=== PATIENT | female | born 1955 | race American Indian/Alaskan Native ===

== ENCOUNTER 2016-10-01 14:38 | Outpatient (CLI) | payer MEDICARE ==
--- NOTE | 2016-10-01 15:43 | Mammography Report ---
BILATERAL MAMMOGRAM: FINDINGS: The breast tissue is heterogeneously dense, which could obscure detection of small masses (approximately 50%-75% glandular). No mass, distortion, suspicious calcification, or skin change is seen. There are no significant changes when compared to her prior study in September 2014. CAD was utilized. IMPRESSION: Negative mammogram. There is no mammographic evidence of malignancy. RECOMMENDATION: Follow-up per ACS guidelines. BI-RADS CATEGORY: 1 = Negative ACR BI-RADS MAMMOGRAPHIC CODES: 0 = Needs additional imaging evaluation; 1 = Negative; 2 = Benign; 3 = Probably benign; 4 = Suspicious; 5 = Malignant; 6 = Known biopsy-proven malignancy COMMENT: 1. Dense breast tissue, i.e., adenosis, fibrocystic changes, etc., may obscure an underlying neoplasm. 2. Approximately 10% of cancers are not detected with mammography. 3. A negative mammography report should not delay biopsy if a clinically suspicious mass is present. COMMENT: Patient follow-up letters are generated in [employer].
== END 2016-10-01 14:39 | disposition home or self-care (01) ==
LOC: MAMMO 14:38
PROVIDERS: ATTEND Internal Medicine
DX: Z12.31 Encounter for screening mammogram for malignant neoplasm of breast (principal)
CPT/HCPCS: 77067; G0202

== ENCOUNTER 2017-10-06 13:35 | Outpatient (CLI) | payer MEDICARE ==
--- NOTE | 2017-10-07 12:55 | Mammography Report ---
BILATERAL DIGITAL SCREENING MAMMOGRAM with CAD: 10/06/17 13:35:00 CLINICAL: Routine screening. COMPARISON:10/01/16 FINDINGS: The breasts are heterogeneously dense, which may obscure small masses. No mass, architectural distortion or suspicious calcifications. IMPRESSION: No mammographic evidence of malignancy. BI-RADS CATEGORY: 1 - - Negative RECOMMENDATION: Routine mammographic screening in one year. COMMENT: Patient follow-up letters are generated by our [employer] application.
== END 2017-10-06 13:36 | disposition home or self-care (01) ==
LOC: MAMMO 13:35
PROVIDERS: ATTEND Internal Medicine
DX: Z12.31 Encounter for screening mammogram for malignant neoplasm of breast (principal); F17.200 Nicotine dependence, unspecified, uncomplicated
CPT/HCPCS: 77067

== ENCOUNTER 2018-10-14 13:10 | Outpatient (CLI) | payer MEDICARE ==
--- NOTE | 2018-10-15 09:38 | Mammography Report ---
BILATERAL DIGITAL SCREENING MAMMOGRAM : 10/14/18 13:10:00 CLINICAL: Routine screening. COMPARISON:10/06/17 FINDINGS: The breasts are heterogeneously dense, which may obscure small masses. A right asymmetry and left asymmetry with architectural distortion require additional imaging.No suspicious calcifications. IMPRESSION: Bilateral asymmetries requiring further workup. BI-RADS CATEGORY: 0 -- Additional Imaging Evaluation Required RECOMMENDATION: Recall for a right spot magnification view, left rolled CC and spot magnification CC views and bilateral breast ultrasound if needed. ACR BI-RADS MAMMOGRAPHIC CODES: 0 = Needs additional imaging evaluation; 1 = Negative; 2 = Benign; 3 = Probably benign; 4 = Suspicious; 5 = Malignant; 6 = Known biopsy-proven malignancy COMMENT: 1. Dense breast tissue, i.e., adenosis, fibrocystic changes, etc., may obscure an underlying neoplasm. 2. Approximately 10% of cancers are not detected with mammography. 3. A negative mammography report should not delay biopsy if a clinically suspicious mass is present. COMMENT: Patient follow-up letters are generated via our [employer] application.
== END 2018-10-14 13:11 | disposition home or self-care (01) ==
LOC: MAMMO 13:10
PROVIDERS: ATTEND Internal Medicine
DX: I10 Essential (primary) hypertension (principal); Z12.31 Encounter for screening mammogram for malignant neoplasm of breast; J44.9 Chronic obstructive pulmonary disease, unspecified; Z90.710 Acquired absence of both cervix and uterus; Z90.49 Acquired absence of other specified parts of digestive tract
CPT/HCPCS: 77067

== ENCOUNTER 2018-11-17 13:27 | Outpatient (CLI) | payer MEDICARE ==
--- NOTE | 2018-11-17 14:22 | Mammography Report ---
BILATERAL DIGITAL DIAGNOSTIC MAMMOGRAM : 11/17/18 13:27:00 CLINICAL: Recalled for bilateral asymmetries. COMPARISON:10/14/18 screening FINDINGS: Additional bilateral mammographic views were performed and are negative. IMPRESSION: No mammographic evidence of malignancy. BI-RADS CATEGORY: 1 -- Negative RECOMMENDATION: Routine mammographic screening in one year. COMMENT: 1. Dense breast tissue, i.e., adenosis, fibrocystic changes, etc., may obscure an underlying neoplasm. 2. Approximately 10% of cancers are not detected with mammography. 3. A negative mammography report should not delay biopsy if a clinically suspicious mass is present. COMMENT: Patient follow-up letters are generated via our [employer] application.
== END 2018-11-17 13:28 | disposition home or self-care (01) ==
LOC: MAMMO 13:27
PROVIDERS: ATTEND Internal Medicine
DX: R92.8 Other abnormal and inconclusive findings on diagnostic imaging of breast (principal); I10 Essential (primary) hypertension; J44.9 Chronic obstructive pulmonary disease, unspecified; Z90.710 Acquired absence of both cervix and uterus; Z90.49 Acquired absence of other specified parts of digestive tract
CPT/HCPCS: 77066

== ENCOUNTER 2019-10-06 03:11 | Observation (INO) | payer MEDICARE ==
[2019-10-06 03:38] LABS: Basophils # (Auto) 0.1 K/mm3 (0.0-0.1); Basophils % (Auto) 0.7 % (0.0-1.8); Eosinophils # (Auto) 0.1 K/mm3 (0.0-0.4); Eosinophils % (Auto) 1.8 % (0.0-4.3); Hematocrit 44.1 % (30.3-42.9); Hemoglobin 15.3 gm/dl (10.1-14.3); Lymphocytes # (Auto) 3.8 K/mm3 (1.2-5.4); Mean Corpuscular HGB Conc 35 % (30-34); Mean Corpuscular Volume 98 fl (79-97); Monocytes # (Auto) 0.5 K/mm3 (0.0-0.8); Monocytes % (Auto) 5.9 % (0.0-7.3); Platelet Count 162 K/mm3 (140-440); Red Blood Count 4.48 M/mm3 (3.65-5.03); Red Cell Distribution Width 14.4 % (13.2-15.2)
--- NOTE | 2019-10-06 03:49 | Cat Scan Report ---
CT HEAD/BRAIN WO CON INDICATION / CLINICAL INFORMATION: Right sided arm weakness. No previous stroke(s). TECHNIQUE: All CT scans at this location are performed using CT dose reduction for ALARA by means of automated e xposure control. COMPARISON: None available. FINDINGS: There is a possible tiny lacunar infarct in the anterior limb of the internal capsule on the right. A small low density area in the inferior right basal ganglia region probably represents a prominent pe rivascular space. No other focal lesion is seen. There is no evidence of mass effect or intracranial hemorrhage. I see no evidence of acute major vessel occlusion. The calvarium is intact and the visualized paranasal sinuses are clear. IMPRESSION: 1. Possible tiny lacunar infarct in the anterior limb of the internal capsule on the right is of unce rtain age. 2. No evidence of acute major vessel occlusion or intracranial hemorrhage. This code stroke report was communicated to Dr. Koo in the emergency room at 2:43 AM. Signer Name: Donald Gómez MD Signed: 10/06/2019 3:45 AM Workstation Name: [id number]
[2019-10-06 03:51] LABS: BUN/Creatinine Ratio 16; Blood Urea Nitrogen 14 mg/dL (7-17); Calcium 9.4 mg/dL (8.4-10.2); Hemolysis Index 53
[2019-10-06] MEDS ORDERED: CLOPIDOGREL 300 MG TAB PO ONE (03:57)
--- NOTE | 2019-10-06 03:58 | Emergency Department Report ---
HPI - General Chief Complaint: Neuro Symptoms/Deficit Time Seen by Provider: 10/06/19 03:55 - HPI HPI: Room 2 The patient is a 64-year-old female present with a chief complaint of right- sided weakness. The patient states she cooked dinner this evening at 19: 00 and then fell asleep while watching television at approximately 20: 00. The patient states she awakened when the phone rang but noted she had difficulty reaching for the phone with her right arm. The patient states the right arm was weak and numb and she figured it just "fell asleep." Patient answered the phone with her left hand and had a conversation with her mother. She states after the conversation she noticed her right upper extremity was still weak and numb prompting her to call EMS. EMS arrived and advised the patient to come to the hospital but the patient states she was concerned that the hospital was too busy secondary to the coronavirus outbreak so she decided to stay home. The patient eventually called her primary physician who international recruiter instructed her to come to the ED. ED Past Medical Hx - Past Medical History Previous Medical History?: Yes Hx Hypertension: Yes Hx COPD: Yes (and chronic bronchitis) Additional medical history: fibromyalgia, back issues, borderline diabetic,Emphysema - Surgical History Past Surgical History?: Yes Hx Coronary Stent: Yes (8 years ago) Hx Cholecystectomy: Yes Additional Surgical History: hysterectomy - Social History Smoking Status: Current Every Day Smoker (1 pack/day) Substance Use Type: None (Denies illicit drug use) - Medications Home Medications: Home Medications Medication Instructions Recorded Confirmed Last Taken Type ALPRAZolam [Xanax] 1 mg PO DAILY PRN 03/18/13 03/18/13 03/17/13 History Gabapentin [Gralise] 600 mg PO TID 03/18/13 03/18/13 03/17/13 History Morphine ER [Ms Contin ER] 30 mg PO BID PRN 03/18/13 03/18/13 03/17/13 History Morphine [Morphine TAB] 30 mg PO BID 03/18/13 03/18/13 03/17/13 History Valsartan [Diovan] DAILY 03/18/13 03/18/13 03/17/13 History Verapamil HCl [Verapamil] 240 mg PO DAILY 03/18/13 03/18/13 Unknown History cloZAPine [Clozapine Odt] 5 mg PO DAILY 09/03/18/13 03/17/13 History fentaNYL [Duragesic] 75 mcg TD Q3D 03/18/13 03/18/13 03/17/13 History ED Review of Systems ROS: Stated complaint: RT SIDE NUMBNESS Other details as noted in HPI Constitutional: no symptoms reported Eyes: denies: eye pain ENT: denies: throat pain Respiratory: no symptoms reported Cardiovascular: denies: chest pain Endocrine: no symptoms reported Gastrointestinal: denies: abdominal pain Neurological: weakness, paresthesias Physical Exam - Physical Exam Vital Signs: Vital Signs 10/06/19 03:22 Temperature 98.1 F Pulse Rate 67 Respiratory 20 Rate Blood Pressure 140/73 O2 Sat by Pulse 97 Oximetry Physical Exam: GENERAL: The patient is well-developed well-nourished female sitting on stretcher not appearing to be in acute distress. [] HEENT: Normocephalic. Atraumatic. Extraocular motions are intact. Patient has moist mucous membranes. NECK: Supple. Trachea midline CHEST/LUNGS: Clear to auscultation. There is no respiratory distress noted. HEART/CARDIOVASCULAR: Regular. There is no tachycardia. There is no gallop rub or murmur. ABDOMEN: Abdomen is soft, nontender. Patient has normal bowel sounds. There is no abdominal distention. SKIN: There is no rash. There is no edema. There is no diaphoresis. NEURO: The patient is awake, alert, and oriented. The patient is cooperative. Cranial nerves II through XII grossly intact. Patient is unable to fully raise right upper extremity above her head secondary to weakness. The patient has normal speech MUSCULOSKELETAL: There is no evidence of acute injury. ED Course Vital Signs 10/06/19 03:22 Temperature 98.1 F Pulse Rate 67 Respiratory 20 Rate Blood Pressure 140/73 O2 Sat by Pulse 97 Oximetry - Consultations Consultation #1: 10/06/19 03:57 Case discussed with tele-neurologist- no TPA at this time. Recommends CTA neck and brain ED Medical Decision Making - Lab Data Result diagrams: 10/06/19 03:25 10/06/19 03:25 Laboratory Tests 10/06/19 10/06/19 10/06/19 03:25 03:25 03:25 WBC 7.8 RBC 4.48 Hgb 15.3 H Hct 44.1 H MCV 98 H MCH 34 H MCHC 35 H RDW 14.4 Plt Count 162 Lymph % (Auto) 49.0 H [place] % (Auto) 5.9 Eos % (Auto) 1.8 Baso % (Auto) 0.7 Lymph # 3.8 [place] # 0.5 Eos # 0.1 Baso # 0.1 Seg Neutrophils % 42.6 Seg Neutrophils # 3.3 PT 14.2 INR 1.09 APTT 33.5 Sodium 138 Potassium 4.3 Chloride 105.1 Carbon Dioxide 24 Anion Gap 13 BUN 14 Creatinine 0.9 Estimated GFR > 60 BUN/Creatinine Ratio 16 Glucose 97 Calcium 9.4 Troponin T < 0.010 - EKG Data -: EKG Interpreted by Me EKG shows normal: sinus rhythm Rate: normal - EKG Data When compared to previous EKG there are: previous EKG unavailable Interpretation: other (PVC) - Differential Diagnosis CVA, TIA Critical care attestation.: If time is entered above; I have spent that time in minutes in the direct care of this critically ill patient, excluding procedure time. ED Disposition Clinical Impression: CVA (cerebral vascular accident) Disposition: DC-09 OP ADMIT IP TO THIS HOSP Is pt being admited?: Yes Does the pt Need Aspirin: No Condition: Fair Referrals: PRIMARY CARE, [Referring] - 3-5 Days
[2019-10-06 04:25] LABS: INR 1.09 (0.87-1.13); Partial Thromboplastin Time 33.5 Sec. (24.2-36.6)
--- NOTE | 2019-10-06 06:18 | Emergency Department Report ---
HPI - General Chief Complaint: Neuro Symptoms/Deficit Time Seen by Provider: 10/06/19 03:55 - HPI HPI: [facility] Date of Service: 10/06/2019 03:17:07 Impression: Rule Out Acute Ischemic Stroke Comments/Sign-Out: The patient has right sided weaekness,most likely a left basal ganglia stroke. CTA head/neck is negative. No CTA head/neck and perfusion evidence of lvo. Metrics: Last Known Well: 10/06/2019 22:00:00 [facility] Notification Time: 10/06/2019 03:16:31 Arrival Time: 10/06/2019 03:17:07 Stamp Time: 10/06/2019 03:17:07 Time First Login Attempt: 10/06/2019 03:17:07 Video Start Time: 10/06/2019 03:17:07 Symptoms: right arm weakness NIHSS Start Assessment Time: 10/06/2019 03:38:21 Patient is not a candidate for tPA. Patient was not deemed candidate for tPA thrombolytics because of Last Well Known Above 4.5 Hours. Video End Time: 10/06/2019 03:38:24 CT head showed no acute hemorrhage or acute core infarct. Clinical Presentation is Suggestive of Large Vessel Occlusive Disease, Recommendations are as Follows Reviewed, No Indication of Large Vessel Occlusive Thrombus, Patient is not an BONNIE Candidate. ED Physician notified of diagnostic impression and management plan on 10/06/2019 03:38:24 Our recommendations are outlined below. Recommendations: Activate Stroke Protocol Admission/Order Set Stroke/Telemetry Floor Neuro Checks Bedside Swallow Eval DVT Prophylaxis IV Fluids, Normal Saline Head of Bed Below 30 Degrees Euglycemia and Avoid Hyperthermia (PRN Acetaminophen) Lipid Panel to Be Obtained, if Not Done in the Last 30 Days Therapies: Physical Therapy, Occupational Therapy, Speech Therapy Assessment When Applicable Dysphaghia Screen: Swallow Evaluation, Bedside NPO Until Swallow Evaluation History of Present Illness: Patient is a 64 year old Male. Patient was brought by EMS for symptoms of right arm weakness The patient has right arm weakeness that started close to [address] head showed no acute hemorrhage or acute core infarct. Last seen normal was beyond 4.5 hours of presentation. There is no history of hemorrhagic complications or intracranial hemorrhage. There is no history of Recent Anticoagulants. There is no history of recent major surgery. There is no history of recent stroke. Examination: Blood Glucose(88) 1A: Level of Consciousness - Alert; keenly responsive + 0 1B: Ask Month and Age - Both Questions Right + 0 1C: Blink Eyes & Squeeze Hands - Performs Both Tasks + 0 2: Test Horizontal Extraocular Movements - Normal + 0 3: Test Visual Hansen - No Visual Loss + 0 4: Test Facial Palsy (Use Grimace if Obtunded) - Normal symmetry + 0 5A: Test Left Arm Motor Drift - No Drift for 10 Seconds + 0 5B: Test Right Arm Motor Drift - Drift, but doesn't hit bed + 1 6A: Test Left Leg Motor Drift - No Drift for 5 Seconds + 0 6B: Test Right Leg Motor Drift - Drift, but doesn't hit bed + 1 7: Test Limb Ataxia (FNF/Heel-Braun) - No Ataxia + 0 8: Test Sensation - Mild-Moderate Loss: Less Sharp/More Dull + 1 9: Test Language/Aphasia - Normal; No aphasia + 0 10: Test Dysarthria - Normal + 0 11: Test Extinction/Inattention - No abnormality + 0 NIHSS Score: 3 Patient was informed the Neurology Consult would happen via TeleHealth consult by way of interactive audio and video telecommunications and consented to receiving care in this manner. Due to the immediate potential for life-threatening deterioration due to underlying acute neurologic illness, I spent 35 minutes providing critical care. This time includes time for face to face visit via telemedicine, review of medical records, imaging studies and discussion of findings with providers, the patient and/or family. Dr Rodo [facility] Case [id number] ED Past Medical Hx - Past Medical History Previous Medical History?: Yes Hx Hypertension: Yes Hx COPD: Yes (and chronic bronchitis) Additional medical history: fibromyalgia, back issues, borderline diabetic,Emphysema - Surgical History Past Surgical History?: Yes Hx Coronary Stent: Yes (8 years ago) Hx Cholecystectomy: Yes Additional Surgical History: hysterectomy - Social History Smoking Status: Current Every Day Smoker (1 pack/day) Substance Use Type: None (Denies illicit drug use) - Medications Home Medications: Home Medications Medication Instructions Recorded Confirmed Last Taken Type ALPRAZolam [Xanax] 1 mg PO DAILY PRN 03/18/13 03/18/13 03/17/13 History Gabapentin [Gralise] 600 mg PO TID 03/18/13 03/18/13 03/17/13 History Morphine ER [Ms Contin ER] 30 mg PO BID PRN 03/18/13 03/18/13 03/17/13 History Morphine [Morphine TAB] 30 mg PO BID 03/18/13 03/18/13 03/17/13 History Valsartan [Diovan] DAILY 03/18/13 03/18/13 03/17/13 History Verapamil HCl [Verapamil] 240 mg PO DAILY 03/18/13 03/18/13 Unknown History cloZAPine [Clozapine Odt] 5 mg PO DAILY 03/18/13 03/18/13 03/17/13 History fentaNYL [Duragesic] 75 mcg TD Q3D 03/18/13 03/18/13 03/17/13 History ED Review of Systems ROS: Stated complaint: RT SIDE NUMBNESS Other details as noted in HPI Constitutional: no symptoms reported Eyes: denies: eye pain ENT: denies: throat pain Respiratory: no symptoms reported Cardiovascular: denies: chest pain Endocrine: no symptoms reported Gastrointestinal: denies: abdominal pain Neurological: weakness, paresthesias Physical Exam - Physical Exam Vital Signs: Vital Signs 10/06/19 10/06/19 03:22 04:00 Temperature 98.1 F Pulse Rate 67 Respiratory 20 18 Rate Blood Pressure 140/73 O2 Sat by Pulse 97 98 Oximetry ED Course Vital Signs 10/06/19 10/06/19 03:22 04:00 Temperature 98.1 F Pulse Rate 67 Respiratory 20 18 Rate Blood Pressure 140/73 O2 Sat by Pulse 97 98 Oximetry ED Medical Decision Making - Lab Data Result diagrams: 10/06/19 03:25 10/06/19 03:25 Critical care attestation.: If time is entered above; I have spent that time in minutes in the direct care of this critically ill patient, excluding procedure time. ED Disposition Clinical Impression: CVA (cerebral vascular accident) Disposition: OP ADMIT IP TO THIS HOSP Condition: Fair Referrals: PRIMARY CARE, [Referring] - 3-5 Days
--- NOTE | 2019-10-06 06:47 | Cat Scan Report ---
CTA neck with and without contrast CLINICAL HISTORY: Cerebrovascular accident, right arm weakness. Technique: Multiple contiguous postcontrast axial CT images of the neck were obtained at 0.63 mm inte rvals. 3 plane MIP reconstructions were produced. Precontrast localizing images were also performed. All CT scans at this location are performed using the CT dose reduction for ALARA by means of automat ed exposure control. FINDINGS: No previous exams available for comparison. There is minimal atherosclerotic plaque with ti ny foci of calcification involving proximal internal carotid arteries bilaterally. However, there is no significant stenosis by NASCET criteria. The carotid arteries otherwise appear unremarkable. There is no significant focal narrowing involving the vertebral arteries. There is developmental aber rant subclavian artery IMPRESSION: There is minimal atherosclerotic plaque involving proximal internal carotid arteries bilaterally with out significant stenosis by NASCET criteria. There is developmental aberrant right subclavian artery. Signer Name: Ayaan Donaldson MD Signed: 10/06/2019 6:43 AM Workstation Name: [id number]
--- NOTE | 2019-10-06 06:54 | Cat Scan Report ---
CTA head with and without IV contrast. CLINICAL HISTORY: Cerebrovascular accident. Technique: Multiple contiguous postcontrast CT images of the head were obtained at 0.63 mm intervals. 3 plane MIP reconstructions were obtained. Precontrast localizing images were also performed. CT scan s at this location are performed using the CT dose reduction for [employer] by means of automated exposure control. 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 There are small foci of calcification involving di stal ICAs bilaterally without significant focal stenosis by NASCET criteria. There is also mild developmental hypoplasia of the distal left vertebral artery. There is no signific ant narrowing involving the basilar artery. The proximal cerebral arteries otherwise demonstrate appr opriate caliber without CT evidence of large vessel occlusion. The dural venous sinuses opacify with contrast. There is no definitive CTA evidence of intracranial aneurysm. IMPRESSION: There are small foci of calcification involving distal internal carotid arteries without significant focal stenosis by NASCET criteria. 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 Signer Name: Ayaan Donaldson MD Signed: 10/06/2019 6:50 AM Workstation Name: [id number]
--- NOTE | 2019-10-06 13:27 | History and Physical Report ---
History of Present Illness Date of examination: 10/06/19 Date of admission: 10/06/19 09:13 Chief complaint: RUE weakness History of present illness: The patient is a 64-year-old female present with a chief complaint of right UE weakness. The patient states she cooked dinner last evening at 7p and then fell asleep while watching television at approximately 8p. The patient states she awakened when the phone rang but noted she had difficulty reaching for the phone with her right arm. The patient states the right arm was weak and numb and she figured it just "fell asleep." Patient answered the phone with her left hand and had a conversation with her mother. She states after the conversation she noticed her right upper extremity was still weak and numb prompting her to call EMS. EMS arrived and advised the patient to come to the hospital but the patient states she was concerned that the hospital was too busy secondary to the coronavirus outbreak so she decided to stay home. The patient eventually called her primary physician who internet network specialist instructed her to come to the ED. the patient is currently able to bruised her right upper extremity at present. However, patient states that it is weaker than usual. Patient denies any headache or visual disturbances. No other weakness. No other paresthesias. Past History Past Medical History: COPD, hypertension, other (fibromyalgia, back issues, borderline diabetic,Emphysema) Past Surgical History: No surgical history Social history: no significant social history Family history: no significant family history Medications and Allergies Allergies Allergy/AdvReac Type Severity Reaction Status Date / Time aspirin Allergy Rash Verified 03/18/13 12:09 tomato [Tomato] Allergy Rash Verified 03/18/13 12:09 Home Medications Medication Instructions Recorded Confirmed Last Taken Type ALPRAZolam [Xanax] 1 mg PO DAILY PRN 03/18/13 10/06/19 03/17/13 History Gabapentin [Gralise] 600 mg PO TID 03/18/13 10/06/19 03/17/13 History Morphine ER [Ms Contin ER] 30 mg PO BID PRN 03/18/13 10/06/19 03/17/13 History Morphine [Morphine TAB] 30 mg PO BID 03/18/13 10/06/19 03/17/13 History Valsartan [Diovan] 1 mg DAILY 03/18/13 10/06/19 03/17/13 History Verapamil HCl [Verapamil] 240 mg PO DAILY 03/18/13 10/06/19 Unknown History cloZAPine [Clozapine Odt] 5 mg PO DAILY 03/18/13 10/06/19 03/17/13 History fentaNYL [Duragesic] 75 mcg TD Q3D 03/18/13 10/06/19 03/17/13 History Review of Systems All systems: negative Exam - Constitutional Vitals: Temp Pulse Resp BP Pulse Ox 98.0 F 67 20 147/77 97 10/06/19 11:56 10/06/19 11:56 10/06/19 11:56 10/06/19 11:56 10/06/19 11:56 General appearance: Present: no acute distress, well-nourished - EENT Eyes: Present: PERRL ENT: hearing intact, clear oral mucosa - Neck Neck: Present: supple, normal ROM - Respiratory Respiratory effort: normal Respiratory: bilateral: CTA - Cardiovascular Heart Sounds: Present: S1 & S2. Absent: rub, click - Extremities Extremities: pulses symmetrical, No edema Peripheral Pulses: within normal limits - Abdominal General gastrointestinal: Present: soft, non-tender, non-distended, normal bowel sounds Female genitourinary: Present: normal - Integumentary Integumentary: Present: clear, warm, dry - Musculoskeletal Musculoskeletal: gait normal, strength equal bilaterally - Psychiatric Psychiatric: appropriate mood/affect, intact judgment & insight - Neurologic Neurologic: CNII-XII intact, moves all extremities VICTOR HUGO score - Victor Hugo Score Age > 65: (0) No Aspirin use within the Past 7 Days: (0) No 3 or more CAD Risk Factors: (0) No 2 or more Angina events in past 24 hrs: (0) No Known CAD with more than 50% Stenosis: (0) No Elevated Cardiac Markers: (0) No ST Deviation Greater than 0.5mm: (0) No VICTOR HUGO Score: 0 Results - Labs CBC & Chem 7: 10/06/19 03:25 10/06/19 03:25 Labs: Laboratory Last Values WBC 7.8 K/mm3 (4.5-11.0) 10/06/19 03:25 RBC 4.48 M/mm3 (3.65-5.03) 10/06/19 03:25 Hgb 15.3 gm/dl (10.1-14.3) H 10/06/19 03:25 Hct 44.1 % (30.3-42.9) H 10/06/19 03:25 MCV 98 fl (79-97) H 10/06/19 03:25 MCH 34 pg (28-32) H 10/06/19 03:25 MCHC 35 % (30-34) H 10/06/19 03:25 RDW 14.4 % (13.2-15.2) 10/06/19 03:25 Plt Count 162 K/mm3 (140-440) 10/06/19 03:25 Lymph % (Auto) 49.0 % (13.4-35.0) H 10/06/19 03:25 [place] % (Auto) 5.9 % (0.0-7.3) 10/06/19 03:25 Eos % (Auto) 1.8 % (0.0-4.3) 10/06/19 03:25 Baso % (Auto) 0.7 % (0.0-1.8) 10/06/19 03:25 Lymph # 3.8 K/mm3 (1.2-5.4) 10/06/19 03:25 [place] # 0.5 K/mm3 (0.0-0.8) 10/06/19 03:25 Eos # 0.1 K/mm3 (0.0-0.4) 10/06/19 03:25 Baso # 0.1 K/mm3 (0.0-0.1) 10/06/19 03:25 Seg Neutrophils % 42.6 % (40.0-70.0) 10/06/19 03:25 Seg Neutrophils # 3.3 K/mm3 (1.8-7.7) 10/06/19 03:25 PT 14.2 Sec. (12.2-14.9) 10/06/19 03:25 INR 1.09 (0.87-1.13) 10/06/19 03:25 APTT 33.5 Sec. (24.2-36.6) 10/06/19 03:25 Sodium 138 mmol/L (137-145) 10/06/19 03:25 Potassium 4.3 mmol/L (3.6-5.0) 10/06/19 03:25 Chloride 105.1 mmol/L (98-107) 10/06/19 03:25 Carbon Dioxide 24 mmol/L (22-30) 10/06/19 03:25 Anion Gap 13 mmol/L 10/06/19 03:25 BUN 14 mg/dL (7-17) 10/06/19 03:25 Creatinine 0.9 mg/dL (0.7-1.2) 10/06/19 03:25 Estimated GFR > 60 ml/min 10/06/19 03:25 BUN/Creatinine Ratio 16 % 10/06/19 03:25 Glucose 97 mg/dL (65-100) 10/06/19 03:25 POC Glucose 88 (70-105) 10/06/19 03:54 Calcium 9.4 mg/dL (8.4-10.2) 10/06/19 03:25 Troponin T < 0.010 ng/mL (0.00-0.029) 10/06/19 03:25 Assessment and Plan Assessment and plan: Right upper extremity weakness. Etiology may be secondary to CVA/TIA. However, CTA of the head and neck are negative. Await neurology recommendations. Continue aspirin. PT/OT. Hypertension. Continue antihypertensive medications. COPD. Compensated. Fibromyalgia. Type 2 diabetes mellitus. Continue diet.
[2019-10-06] MEDS ORDERED: ACETAMINOPHEN 325 MG TAB PO PRN ×2 (17:54→18:19)
[2019-10-06] MEDS ORDERED: ONDANSETRON 4 MG/2 ML INJ IV PRN (18:19)
[2019-10-06] MEDS ORDERED: PROMETHAZINE 25 MG RECT SUPP PR PRN (18:19)
[2019-10-06] MEDS ORDERED: METOCLOPRAMIDE 10 MG TAB PO PRN (18:19)
[2019-10-06] MEDS ORDERED: MAGNESIUM HYDROXIDE (MOM) ORAL LIQD UDC PO PRN (18:19)
[2019-10-06] MEDS ORDERED: ALPRAZolam 1 MG TAB PO PRN (21:42)
[2019-10-06] MEDS ORDERED: MORPHINE 30 MG PO SCH (22:00)
[2019-10-06] MEDS: MORPHINE 30 MG ER TAB PO PRN (22:53)
[2019-10-06] MEDS ORDERED: fentaNYL 75 MCG/HR PATCH 72HR TD SCH (23:30)
[2019-10-07 05:44] LABS: Chol/HDL Ratio 5.28 %
[2019-10-07] MEDS ORDERED: GABAPENTIN 300 MG CAP PO SCH (08:00)
[2019-10-07] MEDS ORDERED: GABAPENTIN 600 MG PO SCH (08:00)
--- NOTE | 2019-10-07 08:45 | Progress Note ---
Hospitalist Physical - Constitutional Vitals: Temp Pulse Resp BP Pulse Ox 98.3 F 58 L 20 138/62 91 10/07/19 07:40 10/07/19 07:40 10/07/19 07:40 10/07/19 07:40 10/07/19 07:40 General appearance: Present: no acute distress, well-nourished VICTOR HUGO score - Victor Hugo Score Age > 65: (0) No Aspirin use within the Past 7 Days: (0) No 3 or more CAD Risk Factors: (0) No 2 or more Angina events in past 24 hrs: (0) No Known CAD with more than 50% Stenosis: (0) No Elevated Cardiac Markers: (0) No ST Deviation Greater than 0.5mm: (0) No VICTOR HUGO Score: 0 Results - Labs CBC & Chem 7: 10/06/19 03:25 10/06/19 03:25 Labs: Laboratory Last Values WBC 7.8 K/mm3 (4.5-11.0) 10/06/19 03:25 RBC 4.48 M/mm3 (3.65-5.03) 10/06/19 03:25 Hgb 15.3 gm/dl (10.1-14.3) H 10/06/19 03:25 Hct 44.1 % (30.3-42.9) H 10/06/19 03:25 MCV 98 fl (79-97) H 10/06/19 03:25 MCH 34 pg (28-32) H 10/06/19 03:25 MCHC 35 % (30-34) H 10/06/19 03:25 RDW 14.4 % (13.2-15.2) 10/06/19 03:25 Plt Count 162 K/mm3 (140-440) 10/06/19 03:25 Lymph % (Auto) 49.0 % (13.4-35.0) H 10/06/19 03:25 [place] % (Auto) 5.9 % (0.0-7.3) 10/06/19 03:25 Eos % (Auto) 1.8 % (0.0-4.3) 10/06/19 03:25 Baso % (Auto) 0.7 % (0.0-1.8) 10/06/19 03:25 Lymph # 3.8 K/mm3 (1.2-5.4) 10/06/19 03:25 [place] # 0.5 K/mm3 (0.0-0.8) 10/06/19 03:25 Eos # 0.1 K/mm3 (0.0-0.4) 10/06/19 03:25 Baso # 0.1 K/mm3 (0.0-0.1) 10/06/19 03:25 Seg Neutrophils % 42.6 % (40.0-70.0) 10/06/19 03:25 Seg Neutrophils # 3.3 K/mm3 (1.8-7.7) 10/06/19 03:25 PT 14.2 Sec. (12.2-14.9) 10/06/19 03:25 INR 1.09 (0.87-1.13) 10/06/19 03:25 APTT 33.5 Sec. (24.2-36.6) 10/06/19 03:25 Sodium 138 mmol/L (137-145) 10/06/19 03:25 Potassium 4.3 mmol/L (3.6-5.0) 10/06/19 03:25 Chloride 105.1 mmol/L (98-107) 10/06/19 03:25 Carbon Dioxide 24 mmol/L (22-30) 10/06/19 03:25 Anion Gap 13 mmol/L 10/06/19 03:25 BUN 14 mg/dL (7-17) 10/06/19 03:25 Creatinine 0.9 mg/dL (0.7-1.2) 10/06/19 03:25 Estimated GFR > 60 ml/min 10/06/19 03:25 BUN/Creatinine Ratio 16 % 10/06/19 03:25 Glucose 97 mg/dL (65-100) 10/06/19 03:25 POC Glucose 88 (70-105) 10/06/19 03:54 Calcium 9.4 mg/dL (8.4-10.2) 10/06/19 03:25 Troponin T < 0.010 ng/mL (0.00-0.029) 10/06/19 03:25 Triglycerides 153 mg/dL (2-149) H 10/07/19 04:52 Cholesterol 185 mg/dL (50-199) 10/07/19 04:52 LDL Cholesterol Direct 135 mg/dL (50-130) H 10/07/19 04:52 HDL Cholesterol 35 mg/dL (40-59) L 10/07/19 04:52 Cholesterol/HDL Ratio 5.28 % 10/07/19 04:52 [place]/IV: Voiding Method Toilet IV Catheter Type [Left INT / Saline Lock Antecubital] Active Medications - Current Medications Current Medications: Generic Name Dose Route Start Last Admin Trade Name Freq PRN Reason Stop Dose Admin Acetaminophen 650 mg 10/06/19 18:19 Tylenol PO Q4H PRN Pain, Mild (1-3) Alprazolam 1 mg 10/06/19 21:42 Xanax PO DAILY PRN Anxiety Bisacodyl 10 mg 10/06/19 18:19 Dulcolax NH QDAY PRN Constipation Clopidogrel Bisulfate 75 mg 10/07/19 10:00 Plavix PO QDAY [facility] Fentanyl 75 mcg 10/06/19 23:30 10/06/19 22:53 Duragesic TD 75 mcg Q3D JACQUELYN Administration Gabapentin 600 mg 10/07/19 08:00 Gabapentin PO TID [facility] Magnesium Hydroxide 30 ml 10/06/19 18:19 Milk Of Magnesia PO Q4H PRN Constipation Metoclopramide HCl 10 mg 10/06/19 18:19 10/06/19 22:53 Reglan PO 10 mg Q6H PRN Administration Nausea And Vomiting Miscellaneous Medication 5 mg 10/07/19 10:00 Clozapine [Clozapine Odt] PO DAILY [facility] Morphine Sulfate 30 mg 10/06/19 21:42 10/06/19 22:53 Ms Contin Er PO 30 mg BID PRN Administration PAIN (7-10) Ondansetron HCl 4 mg 10/06/19 18:19 10/06/19 19:01 Zofran IV 4 mg Q8H PRN Administration Nausea And Vomiting Promethazine HCl 25 mg 10/06/19 18:19 Phenergan NH Q6H PRN Nausea And Vomiting Sodium Chloride 10 ml 10/06/19 18:19 Sodium Chloride Flush Syringe 10 Ml IV PRN PRN LINE FLUSH Verapamil HCl 240 mg 10/07/19 10:00 Calan Sr PO QDAY [facility]
[2019-10-07] MEDS ORDERED: CLOZAPINE PO SCH (10:00)
[2019-10-07] MEDS ORDERED: VERAPAMIL ER 240 MG TAB PO SCH (10:00)
[2019-10-07] MEDS ORDERED: CLOPIDOGREL 75 MG TAB PO SCH (10:00)
--- NOTE | 2019-10-07 10:54 | Magnetic Resonance Report ---
MR brain wo con INDICATION / CLINICAL INFORMATION: 64 years Female; MAIN: STROKE, RIGHT SIDE WEAKNESS. TECHNIQUE: Multiplanar, multisequence MR images of the brain were obtained. COMPARISON: None available. FINDINGS: BRAIN / INTRACRANIAL CONTENTS: No acute hemorrhage, mass effect, midline shift, hydrocephalus, or acu te, large territorial infarct. No chronic infarct or atrophy. There are mild areas of increased signal intensity on FLAIR imaging in the white matter of the cerebr al hemispheres. These are nonspecific findings and may be related to microangiopathy (hypertension, d iabetes, atherosclerosis), given the patient's age. CRANIOCERVICAL JUNCTION: No significant abnormality. VASCULAR FLOW-VOIDS: No significant abnormality. ORBITS: No significant abnormality of visualized orbits. SINUSES / MASTOIDS: No significant abnormality the visualized paranasal sinuses or mastoid air cells. ADDITIONAL FINDINGS: None. IMPRESSION: 1. No focal mass, hemorrhage, hydrocephalus, or acute ischemia. Signer Name: Timmy Oseguera MD, III Signed: 10/07/2019 10:50 AM Workstation Name: [id number]
--- NOTE | 2019-10-07 11:46 | Progress Note ---
Subjective Date of service: 10/07/19 Interval history: neuro I went over the MRA and it is normal, the MRI shows very minimal white maytter changes certainly no stroke the hx from the ED was that of TIA/ Stroke like I clearly see nothing that represents completed stroke looking at the home meds she is on great deal of medication will review all labs I will leave note about potential work up thanks Objective - Vital Sign Vital Signs - 12hr 10/07/19 10/07/19 10/07/19 01:50 01:59 07:40 Temperature 97.5 F L 98.3 F Pulse Rate 54 L 58 L Respiratory 18 20 Rate Blood Pressure 111/67 138/62 O2 Sat by Pulse 97 91 Oximetry - Laboratory Findings CBC and BMP: 10/06/19 03:25 10/06/19 03:25 Abnormal Lab Findings: Abnormal Labs 10/06/19 10/07/19 03:25 04:52 Hgb 15.3 H Hct 44.1 H MCV 98 H MCH 34 H MCHC 35 H Lymph % (Auto) 49.0 H Triglycerides 153 H LDL Cholesterol Direct 135 H HDL Cholesterol 35 L
--- NOTE | 2019-10-07 13:07 | Discharge Summary ---
Providers - Providers Date of Admission: 10/06/19 09:13 Date of discharge: 10/07/19 Attending physician: МАРИЯ GALICIA 10/06/19 18:19 Occupational Therapy Evaluate and Treat [CONS] Routine Comment: Reason For Exam: Neuro deficits Physical Therapy Evaluation and Treat [CONS] Routine Comment: Reason For Exam: Neuro deficits 10/06/19 18:29 Consult to Physician [CONS] Routine Comment: left mess. answ. machine/ steven Consulting Provider: ERIK AGEE Physician Instructions: Reason For Exam: cva Primary care physician: ERIK CASTILLO Hospitalization Reason for admission: RUE weakness Condition: Fair Hospital course: The patient is a 64-year-old female present with a chief complaint of right UE weakness. The patient was admitted for work-up for CVA. Patient underwent CTA of the head and neck was found to be negative. MRI was also negative. Neurology saw the patient in consultation and felt that nothing based on exam and radiographic studies to suggest CVA. Patient is felt to have received maximal hospital benefit and will be discharged home. The patient likely has radicular pain that may be followed up as an outpatient. Dedicated discharge time 35 minutes. Disposition: - TO HOME OR SELFCARE Time spent for discharge: 35 - Discharge Diagnoses (1) Right upper extremity numbness Status: Acute Core Measure Documentation - Palliative Care Palliative Care/ Comfort Measures: Not Applicable - Core Measures Any of the following diagnoses?: none Exam - Constitutional Vitals: Temp Pulse Resp BP Pulse Ox 98.3 F 58 L 20 138/62 91 10/07/19 07:40 10/07/19 07:40 10/07/19 07:40 10/07/19 07:40 10/07/19 07:40 Plan Follow up with: PRIMARY CAREMD [Referring] - 3-5 Days
[2019-10-07 15:20] VITALS: BP 144/77
[2019-10-07] MEDS: MORPHINE 30 MG ER TAB PO PRN (15:56)
--- NOTE | 2019-10-09 19:27 | Consultation ---
HISTORY OF PRESENT ILLNESS: A 64-year-old black female admitted to [facility] on 10/06/2019. She presented to the hospital with a history that would indicate that she was having problems with right arm and right hand numbness, which after she presented to the hospital, was more specifically located to her upper arm across the biceps and upper triceps area. She denies having had symptoms such as this previously. Of note is the fact the patient is under an intense management program for fibromyalgia and arthritic pain by Dr. Chandra at [facility], a pain physician, and she takes fentanyl, oxycodone and high doses of Neurontin and has been on this program for many years. She has not recently complained of any increased pain. She denies a fever, cough. She has not had any chest pain. She denies any falls, seizures or any other neurological symptoms. After being admitted to the hospital, her symptoms persist with more localized pain over the right upper extremity across the anterior portion of the right biceps, the posterior portion of the right triceps. She has good distal hand movement, both in the right and left side. There is no effect on ambulation. She does not have any aphasia. She has no headaches or other focal neurological symptoms such as visual field cut, facial sensory loss or dermatomal pattern, which would indicate that this is spinal cord in nature. She has not had symptoms such as this previously. She has been on chronic poor health related to fibromyalgia and arthritic complaints, but she has not been previously worked up for any central nervous system lesions from multiple sclerosis, stroke or similar conditions. ALLERGIES: She has ASPIRIN and TOMATO allergies. SOCIAL HISTORY: She is disabled. FAMILY HISTORY: Does not have any similar problems. PHYSICAL EXAMINATION: VITAL SIGNS: Her blood pressure on examination is 132/86, respirations 18, pulse rate 80. NEUROLOGIC: Cranial nerves 2 through 12 are intact. She has no central facial weakness. She has no peripheral facial weakness. Her speech is good. She is not aphasic. She is oriented x 3. She has full ocular movements. She has benign fundi. She has excellent oriented. She is appropriate. She does not have any degree of confusion, disorientation. It was conspicuous her examination is a very nonsegmental weakness of the right arm, predominantly in the upper arm, I did carefully check her to see in fact, she had a radial nerve palsy. She does not have the typical wrist drop, but does seem to have some triceps weakness on the right side, which may be related to partial radial nerve palsy, but she does not have classical features of wrist drop or weakness of the brachioradialis muscle, which one would expect to see. Interestingly, she complains of a peculiar hypesthesia across the dorsal surface of the index finger in the C5 nerve root distribution, but she has no pain associated with this. She has no weakness of her lower extremities. Reflexes are 1+ and symmetrical. 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 I would simply observe this. I think she can be safely discharged. Dr. Chandra can followup on her on an outpatient basis. I would think if she does not improve, MRI scan of the cervical spine might be necessary. This may be some unusual presentation brachial plexitis, but I tend to think this is not the case because the weakness would be more profound than ____ have gotten better that quickly. I also do not think that this represents spinal cord myelitis because of the rather rapid improvement after only about 12 hours of the disorder. I went over her MRI scan in great depth, I carefully reviewed it. I do not think the MRI scan shows any abnormalities that would explain these symptoms particularly in the brain or brainstem. I will communicate these results to Dr. Chandra who follows her in his pain clinic. It is interesting that maybe some of her pain as being muted somewhat by the large amount of narcotics and medicines for nociceptive pain that she is currently taking. I have seen this occasionally, where when on maximum opiate therapy, the features of a peripheral nerve lesion are muted because of the masking effect of the medication and that may be what is playing a role here, so that the more complete symptoms of brachial plexitis are not being demonstrated, but given the fact she is so rapidly improving, I would not resort any steroid therapy or any other more intense therapy at this point. I would simply like to observe her and she may be discharged at this point. JOB# [id number] NEVILLE/DAJA
== END 2019-10-07 16:26 | disposition home or self-care (01) ==
LOC: ED 03:11 → 2B-ACE 09:13
PROVIDERS: ADMIT Hospitalist; ATTEND Hospitalist
DX: M62.81 Muscle weakness (generalized) (principal); I63.9 Cerebral infarction, unspecified; I10 Essential (primary) hypertension; J44.9 Chronic obstructive pulmonary disease, unspecified; E11.9 Type 2 diabetes mellitus without complications; M79.7 Fibromyalgia; F17.200 Nicotine dependence, unspecified, uncomplicated; Z95.1 Presence of aortocoronary bypass graft; Z90.49 Acquired absence of other specified parts of digestive tract; Z90.710 Acquired absence of both cervix and uterus
CPT/HCPCS: 36415; 70450; 70496; 70498; 70551; 80048; 80061; 82962; 84484; 85025; 85610; 85730; 93005; 93010; 93306; 94760; 96374; 97161; 97165; 99285; G0378; J2405; Q9967

== ENCOUNTER 2019-11-01 13:36 | Outpatient (CLI) | payer MEDICARE ==
--- NOTE | 2019-11-01 14:44 | Mammography Report ---
DIGITAL SCREENING MAMMOGRAM WITH CAD, 11/01/2019 INDICATION: Routine screening mammography. TECHNIQUE: Digital bilateral 2D mammography was obtained in the craniocaudal and mediolateral obliq ue projections. This examination was interpreted with the benefit of Computer-Aided Detection analysi s. COMPARISON: Prior mammograms 10/14/2018 and 10/06/2017 FINDINGS: Breast Density: The breasts are heterogeneously dense, which may obscure small masses. There is no evidence of dominant mass, suspicious calcifications or architectural distortion in eithe r breast. There has been no significant change compared with the prior examinations. IMPRESSION: Follow up recommendation: Routine yearly BI-RADS Category 1: Negative. A "normal" or negative report should not discourage follow up or biopsy of a clinically significant f inding. A written summary of these findings will be mailed to the patient. The patient will be entered into a mammography reporting system which will generate a reminder letter for the patient's next appointmen t at the appropriate interval. The [employer] recommends yearly mammograms starting at age 40 and continuing as l buffy as a woman is in good health. Breast MRI is recommended for women with an approximate 20-25% or greater lifetime risk of breast cancer, including women with a strong family history of breast or ova rogelio cancer or who have been treated for Hodgkin's disease. Signer Name: Francheska Lee MD Signed: 11/01/2019 2:40 PM Workstation Name: [id number]
== END 2019-11-01 13:37 | disposition home or self-care (01) ==
LOC: MAMMO 13:36
PROVIDERS: ATTEND Internal Medicine
DX: Z12.31 Encounter for screening mammogram for malignant neoplasm of breast (principal); N64.89 Other specified disorders of breast
CPT/HCPCS: 77067

== ENCOUNTER 2020-11-12 14:22 | Outpatient (CLI) | payer MEDICARE ==
--- NOTE | 2020-11-12 17:59 | Mammography Report ---
DIGITAL SCREENING MAMMOGRAM WITH CAD, 11/12/2020 CLINICAL INFORMATION / INDICATION: Routine screening mammography. TECHNIQUE: Digital bilateral 2D mammography was obtained in the craniocaudal and mediolateral obliqu e projections. This examination was interpreted with the benefit of Computer-Aided Detection analysis . COMPARISON: 11/01/2019, 11/17/2018 FINDINGS: Breast Density: The breasts are heterogeneously dense, which may obscure small masses. No dominant mass, suspicious calcifications, or architectural distortion in either breast. IMPRESSION: No mammographic evidence of malignancy. Follow up recommendation: Routine yearly BI-RADS Category 1: Negative. A "normal" or negative report should not discourage follow up or biopsy of a clinically significant f inding. A written summary of these findings will be mailed to the patient. The patient will be entered into a mammography reporting system which will generate a reminder letter for the patient's next appointmen t at the appropriate interval. The [employer] recommends yearly mammograms starting at age 40 and continuing as l buffy as a woman is in good health. Breast MRI is recommended for women with an approximate 20-25% or greater lifetime risk of breast cancer, including women with a strong family history of breast or ova rogelio cancer or who have been treated for Hodgkin's disease. Signer Name: Brooks Dong MD Signed: 11/12/2020 5:55 PM Workstation Name: [email or web address]
== END 2020-11-12 14:23 | disposition home or self-care (01) ==
LOC: MAMMO 14:22
PROVIDERS: ATTEND Internal Medicine
DX: Z12.31 Encounter for screening mammogram for malignant neoplasm of breast (principal)
CPT/HCPCS: 77067

== ENCOUNTER 2020-12-04 11:00 | Outpatient (CLI) | payer MEDICARE | END 2020-12-04 11:01 | disposition home or self-care (01) | LOC: SLR 11:00 | PROVIDERS: ATTEND Specialist | DX: G47.30 Sleep apnea, unspecified (principal) | CPT/HCPCS: 95810 ==